=== PATIENT | female | born 1985 ===

== ENCOUNTER 2022-03-09 10:06 | Outpatient (CLI) | payer OTHER | END 2022-03-09 10:30 | disposition home or self-care (01) | LOC: MRI 10:06 | PROVIDERS: ATTEND Orthopaedic Surgery | DX: S83.200A Bucket-handle tear of unspecified meniscus, current injury, right knee, initial encounter (principal); S83.201A Bucket-handle tear of unspecified meniscus, current injury, left knee, initial encounter | CPT/HCPCS: 73721 ==